=== PATIENT | female | born 1965 | race African-American/Black ===

== ENCOUNTER 2020-11-08 05:10 | Day surgery (SDC) | payer OTHER ==
[2020-11-06 15:58] VITALS: BMI 54.5
[2020-11-08] MEDS ORDERED: INSULIN REGULAR HUMAN 100 UNITS/ML *VIAL IVPUSH ONE ×2 (07:45→09:30)
[2020-11-08] MEDS ORDERED: MIDAZOLAM HCL 2 MG/2 ML SINGLE DOSE VIAL ONE ×3 (10:28)
[2020-11-08] MEDS ORDERED: ceFAZolin 2 GRAM PREMIX BAG IVPB ONE (10:57)
[2020-11-08] MEDS ORDERED: ONDANSETRON 4 MG/2 ML VIAL IVPUSH PRN (11:29)
[2020-11-08] MEDS ORDERED: PROMETHAZINE HCL 25 MG/1 ML VIAL IVPUSH PRN (11:29)
[2020-11-08] MEDS ORDERED: oxyCODONE HCL 5 MG TABLET PO PRN ×2 (11:29→14:06)
[2020-11-08 16:50] VITALS: BP 140/68; PULSE 77; TEMP 98.2
== END 2020-11-08 17:35 | disposition home or self-care (01) ==
LOC: JASU-SURG 05:10
PROVIDERS: ATTEND Urology
PROC: 0TC68ZZ Extirpation of Matter from Right Ureter, Via Natural or Artificial Opening Endoscopic (ICD-10-PCS; principal; 2020-11-08 08:30)
PROC: 0T768DZ Dilation of Right Ureter with Intraluminal Device, Via Natural or Artificial Opening Endoscopic (ICD-10-PCS; 2020-11-08 08:30)
DX: N20.1 Calculus of ureter (principal); E11.9 Type 2 diabetes mellitus without complications
CPT/HCPCS: 36415; 76000-TC-FY; 82360; 82962; 88300-TC; 94760